=== PATIENT | male | born 1975 | race Caucasian/White ===

== ENCOUNTER 2017-04-12 21:28 | Emergency (ER) | payer SELFPAY ==
[~2017-04-12] VITALS: Ht 180.3 cm; Wt 105.0 kg
[~2017-04-12 21:28] MED LIST: CIPR500T4 PO; CYCL-36 PO; DICL50 PO; METR-1 PO
[2017-04-12 21:37] VITALS: BP 172/91; PULSE 106; RESP 16; TEMP 100.2; O2SAT 99
--- NOTE | 2017-04-12 22:05 | PD ---
Physical Exam Date Seen by Provider: Apr 12, 2017 Time Seen by Provider: 22:02 Data Data Last Documented VS Vital Signs Date Time Temp Pulse Resp B/P Pulse Ox O2 Delivery O2 Flow Rate FiO2 04/12/17 21:37 100.2 106 16 172/91 99 Room Air MDM Supervised Visit with JENNIFER: No Narrative Course 41 YO M with complaint of fever, rash, right foot swelling, headache, nausea x " a couple of days." Also complains of 3 days of diarrhea, resolved on presentation. Patient just returned from 10 days in [place]. No treatment at home. Vitals reviewed. Patient seen in triage, awaiting bed placement. Neha Galeas Apr 12, 2017 22:05
[2017-04-12] MEDS ORDERED: KETOROLAC TROMETHAMINE 30 MG/ML (IVP) VIAL IV PUSH ONE (23:00)
[2017-04-12] MEDS ORDERED: ONDANSETRON HCL 4 MG/2 ML VIAL IV PUSH ONE (23:00)
--- NOTE | 2017-04-12 23:00 | PD ---
HPI Chief Complaint: Fever Time Seen by Provider: 22:54 Travel History International Travel<30 days: Yes Contact w/Intl Traveler<30days: Yes Name of Country Traveled to: [place] Traveled to known affect area: No History of Present Illness HPI 41-year-old male that presents to the ED for evaluation of fever, headache, nausea and vomiting and diarrhea. Patient has a history of recent travel to [place]. Per patient he got sick while he was in [place] and he had a lot of diarrhea as well as abdominal discomfort. Per patient he seemed to go away and then he came back for the past couple days. His been having a headache, fevers chills and sweats as well as nausea vomiting and diarrhea. He also cystitis some anal pain. He also states having swelling to both lower legs which started the past couple of days. Per patient the pain is in the medial aspect. Denies any chest pain or shortness of breath. He states having some cough but no congestion. Headache is mild. He is not taking anything for his fever today. He denies any injuries. He states that he has a family member in [place] who also has the same symptoms and patient and family members are concerned that he might have Zika or Dengue which are, per patient, "rampant" in [place]. Pain per patient is 4/10. No blood. Rash to the abdomen which started today. PFSH Past Medical History Hx Anticoagulant Therapy: No Cardiovascular Problems: Yes (HTN) Chemotherapy: No Cerebrovascular Accident: No Diabetes: No Respiratory: No Social History Alcohol Use: No Tobacco Use: No Substance Use: No Allergies-Medications (Allergen,Severity, Reaction): Coded Allergies: No Known Allergies (Unverified , 04/12/17) Reported Meds & Prescriptions Reported Meds & Active Scripts Active Flagyl (Metronidazole) 500 Mg Tab 500 Mg PO Q6HR 10 Days Cipro (Ciprofloxacin HCl) 500 Mg Tab 500 Mg PO Q12HR 10 Days Flexeril (Cyclobenzaprine HCl) 10 Mg Tab 10 Mg PO TID Voltaren (Diclofenac Sodium) 50 Mg Tabec 50 Mg PO TID Review of Systems Except as stated in HPI: all other systems reviewed are Neg Physical Exam Narrative GENERAL: SKIN: Warm and dry. Patient has an erythematous nonspecific rash to the chest. Non-pruritic or painful. HEAD: Atraumatic. Normocephalic. EYES: Pupils equal and round. No scleral icterus. No injection or drainage. ENT: No nasal bleeding or discharge. Mucous membranes pink and moist. Tongue is midline. No uvula deviation. NECK: Trachea midline. No JVD. CARDIOVASCULAR: Regular rate and rhythm. No murmurs, S3, S4. RESPIRATORY: No accessory muscle use. Clear to auscultation. Breath sounds equal bilaterally. GASTROINTESTINAL: Abdomen soft, non-tender, nondistended. Hepatic and splenic margins not palpable. Rectal exam: The with no nurse present. Patient does have what appears to be a hemorrhoid on the 3:00 area. About 2 cm in diameter. MUSCULOSKELETAL: Extremities without clubbing, cyanosis, or edema. No obvious deformities. Full range of motion of the upper and lower extremities bilaterally. 2+ pulses bilaterally. Patient does have soft tissue swelling noted about the medial malleolus bilaterally with some tenderness to palpation in the area. NEUROLOGICAL: Awake and alert. No obvious cranial nerve deficits. Motor grossly within normal limits. Five out of 5 muscle strength in the arms and legs. Normal speech. PSYCHIATRIC: Appropriate mood and affect; insight and judgment normal. Data Data Last Documented VS Vital Signs Date Time Temp Pulse Resp B/P Pulse Ox O2 Delivery O2 Flow Rate FiO2 04/12/17 21:37 100.2 106 16 172/91 99 Room Air Orders Complete Blood Count With Diff (04/12/17 22:49) Comprehensive Metabolic Panel (04/12/17 22:49) Lipase (04/12/17 22:49) Urinalysis - C+S If Indicated (04/12/17 22:49) Chest, Single Ap (04/12/17 22:49) Iv Access Insert/Monitor (04/12/17 22:49) Ketorolac Inj (Toradol Inj) (04/12/17 23:00) Us Leg Venous Doppler Bilat (04/12/17 ) Ondansetron Inj (Zofran Inj) (04/12/17 23:00) Influenzae A/B Antigen (04/12/17 22:53) MDM Medical Decision Making Medical Screen Exam Complete: Yes Emergency Medical Condition: Yes Medical Record Reviewed: Yes Differential Diagnosis Vital illness versus influenza versus diarrhea versus gastroenteritis versus DVT versus normal exam Narrative Course 41-year-old male that presents to the ED for evaluation of nausea vomiting diarrhea and swelling on the legs. Patient was properly examined and was found to have signs and symptoms consistent what appears to be likely viral illness. Unclear etiology at this time. Case was discussed in my attending Dr. Ghosh who will disposition and treatment the patient accordingly. Onel Bush Apr 12, 2017 23:00
--- NOTE | 2017-04-12 23:08 | PD ---
Data Data Last Documented VS Vital Signs Date Time Temp Pulse Resp B/P Pulse Ox O2 Delivery O2 Flow Rate FiO2 04/13/17 01:32 98.7 04/13/17 01:27 18 18 100 Room Air 04/13/17 01:27 123/63 Orders Complete Blood Count With Diff (04/12/17 22:49) Comprehensive Metabolic Panel (04/12/17 22:49) Lipase (04/12/17 22:49) Urinalysis - C+S If Indicated (04/12/17 22:49) Chest, Single Ap (04/12/17 22:49) Iv Access Insert/Monitor (04/12/17 22:49) Ketorolac Inj (Toradol Inj) (04/12/17 23:00) Us Leg Venous Doppler Bilat (04/12/17 ) Ondansetron Inj (Zofran Inj) (04/12/17 23:00) Influenzae A/B Antigen (04/12/17 22:53) Sodium Chlor 0.9% 1000 Ml Inj (Ns 1000 M (04/13/17 00:30) Labs Laboratory Tests Test 04/12/17 04/12/17 23:00 23:56 White Blood Count 4.8 TH/MM3 Red Blood Count 5.38 MIL/MM3 Hemoglobin 14.3 GM/DL Hematocrit 43.8 % Mean Corpuscular Volume 81.5 FL Mean Corpuscular Hemoglobin 26.7 PG Mean Corpuscular Hemoglobin 32.7 % Concent Red Cell Distribution Width 14.6 % Platelet Count 267 TH/MM3 Mean Platelet Volume 7.7 FL Neutrophils (%) (Auto) 60.3 % Lymphocytes (%) (Auto) 29.7 % Monocytes (%) (Auto) 8.2 % Eosinophils (%) (Auto) 1.2 % Basophils (%) (Auto) 0.6 % Neutrophils # (Auto) 2.9 TH/MM3 Lymphocytes # (Auto) 1.4 TH/MM3 Monocytes # (Auto) 0.4 TH/MM3 Eosinophils # (Auto) 0.1 TH/MM3 Basophils # (Auto) 0.0 TH/MM3 CBC Comment DIFF FINAL Differential Comment Sodium Level 137 MEQ/L Potassium Level 3.9 MEQ/L Chloride Level 101 MEQ/L Carbon Dioxide Level 28.8 MEQ/L Anion Gap 7 MEQ/L Blood Urea Nitrogen 13 MG/DL Creatinine 1.71 MG/DL Estimat Glomerular Filtration 45 ML/MIN Rate Random Glucose 108 MG/DL Calcium Level 8.3 MG/DL Total Bilirubin 0.3 MG/DL Aspartate Amino Transf 69 U/L (AST/SGOT) Alanine Aminotransferase 127 U/L (ALT/SGPT) Alkaline Phosphatase 55 U/L Total Protein 7.6 GM/DL Albumin 3.6 GM/DL Lipase 376 U/L Urine Color YELLOW Urine Turbidity CLEAR Urine pH 6.5 Urine Specific Hartman 1.018 Urine Protein TRACE mg/dL Urine Glucose (UA) NEG mg/dL Urine Ketones NEG mg/dL Urine Occult Blood NEG Urine Nitrite NEG Urine Bilirubin NEG Urine Urobilinogen LESS THAN 2.0 MG/DL Urine Leukocyte Esterase NEG Urine RBC 1 /hpf Urine WBC 1 /hpf Urine Squamous Epithelial <1 /hpf Cells Microscopic Urinalysis Comment CULT NOT INDICATED MDM Supervised Visit with JENNIFER: Yes Narrative Course Patient care assumed from Onel Bush PA-C at 2300. This is a 41-year-old healthy male presents emergency department for evaluation of fever and pain rash. Patient states she's had a rash all over. Of examine the rash and appears to be just some mild redness. Rapid flu negative his labs are reassuring as far as as well as management count platelet count. The patient and concerned about getting a fever impossible Z cannula exposure. I do not see any hemorrhagic symptoms. Patient does have minimal elevation of his creatinine but his last was 1.4. I suspect an element of chronic kidney disease. His ALT and AST ratio suggests hepatocellular disease such as hepatitis. This was all discussed with the patient was feeling better after Tylenol and fluids. I think that at this point he can go home. His primary care physician or the health department. Discussed return to ED criteria including hemorrhagic rashes or petechiae. He is stable for discharge. Diagnosis Primary Impression: Fever Additional Impression: Dehydration Disposition: 01 DISCHARGE HOME Condition: Stable Emery Ghosh MD Apr 12, 2017 23:08
--- NOTE | 2017-04-12 23:12 | RADRPT ---
EXAM DATE/TIME: 04/12/2017 22:44 [facility] COMPARISON: CHEST SINGLE AP, May 05, 2016, 15:42. INDICATIONS : Fever and shortness of breath. MEDICAL HISTORY : None. SURGICAL HISTORY : None. ENCOUNTER: Initial ACUITY: 1 week PAIN SCORE: 0/10 LOCATION: chest FINDINGS: A single view of the chest demonstrates the lungs to be symmetrically aerated without evidence of mas s, infiltrate or effusion. The cardiomediastinal contours are unremarkable. Osseous structures are intact. CONCLUSION: No acute disease. Hubert Pascal MD on April 12, 2017 at 23:10 Board Certified Radiologist. This report was verified electronically.
[2017-04-12 23:24] LABS: AUTOMATED NEUTROPHIL # 2.9 TH/MM3 (1.8-7.7); BASOPHIL % 0.6 % (0.0-2.0); EOSINOPHIL # 0.1 TH/MM3 (0-0.4); EOSINOPHIL % 1.2 % (0.0-4.0); HEMATOCRIT 43.8 % (39.0-51.0); HEMO FLAGS DIFF FINAL; LYMPH % 29.7 % (9.0-44.0); LYMPHOCYTE # 1.4 TH/MM3 (1.0-4.8); MEAN CELL VOLUME 81.5 FL (80.0-100.0); MEAN CORPUSCULAR HEMOGLOBIN 26.7 PG (27.0-34.0); MEAN CORPUSCULAR HGB CONC 32.7 % (32.0-36.0); MONO % 8.2 % (0.0-8.0); NEUT % 60.3 % (16.0-70.0); PLATELET COUNT 267 TH/MM3 (150-450); RED BLOOD COUNT 5.38 MIL/MM3 (4.50-5.90); RED CELL DISTRIBUTION WIDTH 14.6 % (11.6-17.2); WHITE BLOOD COUNT 4.8 TH/MM3 (4.0-11.0)
[2017-04-12 23:42] LABS: ALT (GPT) 127 U/L (12-78)
[2017-04-12 23:45] LABS: ALKALINE PHOSPHATASE 55 U/L (45-117); ANION GAP 7 MEQ/L (5-15); AST (GOT) 69 U/L (15-37); BICARBONATE 28.8 MEQ/L (21.0-32.0); BLOOD UREA NITROGEN 13 MG/DL (7-18); CHLORIDE 101 MEQ/L (98-107); GLOMERULAR FILTRATION RATE 45 ML/MIN (>89); SODIUM (NA) 137 MEQ/L (136-145); TOTAL BILIRUBIN ADULT 0.3 MG/DL (0.2-1.0)
[2017-04-12 23:46] LABS: POTASSIUM 3.9 MEQ/L (3.5-5.1)
--- NOTE | 2017-04-13 00:08 | RADRPT ---
EXAM DATE/TIME: 04/12/2017 23:03 [facility] COMPARISON: No previous studies available for comparison. INDICATIONS : Bilateral leg swelling. MEDICAL HISTORY : Hypertension. SURGICAL HISTORY : None. ENCOUNTER: Initial ACUITY: 1 day PAIN SCORE: 2/10 LOCATION: Bilateral legs. TECHNIQUE: Venous ultrasound of the left and right leg was performed from the inguinal ligament to the proximal calf. Real-time, color Doppler and spectral tracing, compression and augmentation techniques were us ed. FINDINGS: RIGHT LEG: There is normal compressibility of the deep venous system from the inguinal region to the proximal ca lf. No echogenic clot is seen in the lumen of the common femoral, femoral, popliteal, and posterior tibial veins. There is a normal response of the venous system to proximal and distal augmentation an d respiration. LEFT LEG: There is normal compressibility of the deep venous system from the inguinal region to the proximal ca lf. No echogenic clot is seen in the lumen of the common femoral, femoral, popliteal, and posterior tibial veins. There is a normal response of the venous system to proximal and distal augmentation an d respiration. CONCLUSION: 1. No DVT in either lower extremity. 2. Enlarged lymph nodes largest in the right groin measures 3.2 cm and the left groin measures 3.3 cm . Hubert Pascal MD on April 13, 2017 at 0:06 Board Certified Radiologist. This report was verified electronically.
[2017-04-13 00:20] LABS: BLOOD, URINE NEG (NEG); GLUCOSE,URINE NEG (NEG); KETONE, URINE NEG (NEG); NITRITE,URINE NEG (NEG); PH, URINE 6.5 (5.0-8.5); SQUAMOUS EPITHELIAL CELL URINE <1 /hpf (0-5); URINE COLOR YELLOW (YELLW/STRAW)
[2017-04-13] MEDS ORDERED: SODIUM CHLOR 0.9% 1000 ML INJ 1,000 ML IV ONE (00:30)
[2017-04-13 00:32] LABS: COMMENT (UR) CULT NOT INDICATED; CULTURE IF INDICATED CULT NOT INDICATED
[2017-04-13 01:27] VITALS: BP 123/63; PULSE 91; RESP 18; O2SAT 100
[2017-04-13 01:32] VITALS: TEMP 98.7
== END 2017-04-13 02:17 | disposition home or self-care (01) ==
LOC: NEPE 21:28
DX: R50.9 Fever, unspecified (principal); E86.0 Dehydration; R21 Rash and other nonspecific skin eruption; R11.2 Nausea with vomiting, unspecified; R19.7 Diarrhea, unspecified; M79.89 Other specified soft tissue disorders; R51 Headache; I10 Essential (primary) hypertension; Z79.899 Other long term (current) drug therapy
CPT/HCPCS: 71010; 80053; 81001; 83690; 85025; 87804; 93970; 96374; 96375; 99285; J1885; J2405; J7030

== ENCOUNTER 2017-11-01 01:04 | Emergency (ER) | payer SELFPAY ==
[~2017-11-01] VITALS: Ht 170.2 cm; Wt 113.5 kg
[2017-11-01 01:18] VITALS: BP 137/70; PULSE 85; RESP 18; TEMP 98.4; O2SAT 97
[2017-11-01] MEDS ORDERED: ACETAMINOPHEN/HYDROcodone 325 MG/5 MG TAB PO ONE (01:45)
[2017-11-01] MEDS ORDERED: INDOMETHACIN 50 MG CAP PO ONE (01:45)
[2017-11-01] MEDS ORDERED: INDO75CA3 PO (01:50)
[2017-11-01] MEDS ORDERED: PRED-503 PO (01:50)
[2017-11-01] MEDS ORDERED: NORC5TAB PO (01:50)
--- NOTE | 2017-11-01 01:55 | PD ---
HPI Chief Complaint: Injury Time Seen by Provider: 01:38 Travel History International Travel<30 days: No Contact w/Intl Traveler<30days: No Traveled to known affect area: No History of Present Illness HPI 42-year-old male presents emergency department with complaints of right ankle pain for the past several days. Patient states that he has had pain in his right ankle in the past similar nature was diagnosed with gout. Patient states that he is unsure whether this is recurrent gout or possibly a sprain although he does not recall injuring it. He states the pain is worse with movement or any type of pressure. He is unable to bear weight. Denies any numbness or tingling. PFSH Past Medical History Narrative Medical Hypertension, gout Hx Anticoagulant Therapy: No Cardiovascular Problems: Yes (HTN) Chemotherapy: No Cerebrovascular Accident: No Diabetes: No Diminished Hearing: No Hypertension: Yes Respiratory: No Tetanus Vaccination: Unknown Influenza Vaccination: No Past Surgical History Surgical History: No Previous Surgery Social History Alcohol Use: No Tobacco Use: No Substance Use: No Allergies-Medications (Allergen,Severity, Reaction): Coded Allergies: No Known Allergies (Unverified Adverse Reaction, Unknown, 11/01/17) Reported Meds & Prescriptions Reported Meds & Active Scripts Active Deltasone (Prednisone) 20 Mg Tab 20 Mg PO TID 5 Days Balko (Hydrocodone-Acetaminophen) 5 Mg-325 Mg Tab 1 Tab PO Q6H PRN 3 Days Indomethacin ER (Indomethacin) 75 Mg Caper 75 Mg PO BID 10 Days Take with food, milk, or antacids to decrease stomach adverse effects. Flagyl (Metronidazole) 500 Mg Tab 500 Mg PO Q6HR 10 Days Cipro (Ciprofloxacin HCl) 500 Mg Tab 500 Mg PO Q12HR 10 Days Flexeril (Cyclobenzaprine HCl) 10 Mg Tab 10 Mg PO TID Voltaren (Diclofenac Sodium) 50 Mg Tabec 50 Mg PO TID Review of Systems Except as stated in HPI: all other systems reviewed are Neg Musculoskeletal: Positive: Arthralgias, Limited ROM, Edema, Pain, No: Weakness Skin: No Rash, No Itching Physical Exam Narrative GENERAL: This is a well-nourished, well-developed patient, in no apparent distress. SKIN: No rashes, ecchymoses or lesions. Warm and dry. HEAD: Atraumatic. Normocephalic. EYES: PERRL, EOMI, no discharge or injection. No scleral icterus. EARS: Clear NOSE: Nasal turbinates appear normal. THROAT: Mucosa pink and moist. Airway patent. NECK: Trachea midline. supple, moves head freely. LUNGS: Clear to auscultation. CV: Regular in rhythm. ABDOMEN: Soft nontender. EXT: No clubbing cyanosis. Examination of the right lower extremity reveals pain and swelling to the right ankle. No pain over the medial lateral malleolus. No pain in the distal forefoot, toes. Patient has no pain in the knee or hip. Skin is intact. Data Data Last Documented VS Vital Signs Date Time Temp Pulse Resp B/P (MAP) Pulse Ox O2 Delivery O2 Flow Rate FiO2 11/01/17 01:18 98.4 85 18 137/70 (92) 97 Orders Orders Splint Or Brace Apply/Monitor (11/01/17 01:42) Crutches (11/01/17 01:42) Acetamin-Hydrocod 325-5 Mg (Balko 5-325 (11/01/17 01:45) Prednisone (Deltasone) (11/01/17 09:00) Indomethacin (Indocin) (11/01/17 01:45) Ed Discharge Order (11/01/17 01:42) MDM Medical Decision Making Medical Screen Exam Complete: Yes Emergency Medical Condition: Yes Medical Record Reviewed: Yes Differential Diagnosis Differential diagnosis: Sprain, strain, gout Narrative Course Patient was given Balko 5 mg, prednisone 40 mg, and 50 mg of indomethacin p.o. This is gout right ankle Diagnosis Primary Impression: Gout of right ankle Qualified Codes: M10.9 - Gout, unspecified Patient Instructions: General Instructions Additional Instructions: Rest. Elevation. Medications as directed. Dean wrap and crutches. Avoid any red meats, cheeses, and/or alcohol. Follow-up with a primary care doctor in 1 week. Med/Other Pt SpecificInfo: Prescription(s) given Scripts Prednisone (Deltasone) 20 Mg Tab 20 MG PO TID for 5 Days, TAB 0 Refills Prov: Shaggy Eisenberg MD 11/01/17 Hydrocodone-Acetaminophen (Balko) 5 Mg-325 Mg Tab 1 TAB PO Q6H Y for PAIN for 3 Days, #12 TAB 0 Refills Prov: Shaggy Eisenberg MD 11/01/17 Indomethacin ER (Indomethacin ER) 75 Mg Caper 75 MG PO BID for 10 Days, #20 CAP 0 Refills Take with food, milk, or antacids to decrease stomach adverse effects. Prov: Shaggy Eisenberg MD 11/01/17 Disposition: 01 DISCHARGE HOME Condition: Stable Victor M Smith Nov 01, 2017 01:55
[2017-11-01] MEDS ORDERED: predniSONE 20 MG TAB PO ONE (02:00)
[2017-11-01] MEDS ORDERED: predniSONE 20 MG TAB PO SCH (09:00)
== END 2017-11-01 02:21 | disposition home or self-care (01) ==
LOC: NEPD 01:04
DX: M10.9 Gout, unspecified (principal); I10 Essential (primary) hypertension
CPT/HCPCS: 99283; E0113; J7512

== ENCOUNTER 2017-12-16 18:11 | Emergency (ER) | payer SELFPAY ==
[~2017-12-16 18:11] MED LIST changes: +INDO75CA3 PO; +NORC5TAB PO; +PRED-503 PO
[2017-12-16 18:30] VITALS: BP 137/92; PULSE 100; RESP 18; TEMP 98.4; O2SAT 97
--- NOTE | 2017-12-16 19:02 | RADRPT ---
EXAM DATE/TIME: 12/16/2017 18:42 [facility] COMPARISON: No previous studies available for comparison. INDICATIONS : Left sided chest pain and cough for one week. MEDICAL HISTORY : Hypertension. SURGICAL HISTORY : None. ENCOUNTER: Initial ACUITY: 1 week PAIN SCORE: 10/10 LOCATION: Left chest FINDINGS: PA and lateral views of the chest demonstrate the lungs to be symmetrically aerated without evidence of mass, infiltrate or effusion. The cardiomediastinal contours are unremarkable. Osseous structure s are intact. CONCLUSION: No acute disease. Braden Hartman MD on December 16, 2017 at 18:59 Board Certified Radiologist. This report was verified electronically.
[2017-12-16] MEDS ORDERED: SODIUM CHLOR 0.9% 1000 ML INJ 1,000 ML IV SCH (20:01)
--- NOTE | 2017-12-16 20:06 | PD ---
HPI Chief Complaint: Musculoskeletal Complaint Time Seen by Provider: 19:58 Travel History International Travel<30 days: No Contact w/Intl Traveler<30days: No Traveled to known affect area: No History of Present Illness HPI 42-year-old male presents emergency department 4 day history of left- sided lower rib/flank pain. Patient has history of horseshoe kidney and kidney stones in the past. Patient denies fever, chills, but has had nausea. He denies dysuria or hematuria, and no change in his bowels. Pain is currently 8 out of 10. He states is worse with deep breath or cough. No vomiting. He has no known drug allergies. PFSH Past Medical History Hx Anticoagulant Therapy: No Cardiovascular Problems: Yes (HTN) Chemotherapy: No Cerebrovascular Accident: No Diabetes: No Diminished Hearing: No Hypertension: Yes Respiratory: No Social History Alcohol Use: No Tobacco Use: No Substance Use: No Allergies-Medications (Allergen,Severity, Reaction): Coded Allergies: No Known Allergies (Unverified Allergy, Unknown, 11/01/17) Reported Meds & Prescriptions Reported Meds & Active Scripts Active Deltasone (Prednisone) 20 Mg Tab 20 Mg PO TID 5 Days Clemons (Hydrocodone-Acetaminophen) 5 Mg-325 Mg Tab 1 Tab PO Q6H PRN 3 Days Indomethacin ER (Indomethacin) 75 Mg Caper 75 Mg PO BID 10 Days Take with food, milk, or antacids to decrease stomach adverse effects. Flagyl (Metronidazole) 500 Mg Tab 500 Mg PO Q6HR 10 Days Cipro (Ciprofloxacin HCl) 500 Mg Tab 500 Mg PO Q12HR 10 Days Flexeril (Cyclobenzaprine HCl) 10 Mg Tab 10 Mg PO TID Voltaren (Diclofenac Sodium) 50 Mg Tabec 50 Mg PO TID Review of Systems Except as stated in HPI: all other systems reviewed are Neg General / Constitutional: No: Fever Eyes: No: Visual changes HENT: No: Headaches Cardiovascular: No: Chest Pain or Discomfort Respiratory: No: Shortness of Breath Gastrointestinal: No: Abdominal Pain Genitourinary: Positive: Flank Pain, No: Urgency, Frequency, Dysuria Musculoskeletal: No: Pain Skin: No Rash Neurologic: No: Weakness Psychiatric: No: Depression Endocrine: No: Polydipsia Hematologic/Lymphatic: No: Easy Bruising Physical Exam Narrative GENERAL: Patient appears in moderate distress. SKIN: Warm and dry. Normal color. Normal turgor. No rash. HEAD: Atraumatic. Normocephalic. EYES: Pupils equal and round. No scleral icterus. No injection or drainage. ENT: No nasal bleeding or discharge. Mucous membranes pink and moist. Pharynx is clear. Airways patent NECK: Trachea midline. Supple nontender CARDIOVASCULAR: Regular rate and rhythm. RESPIRATORY: No accessory muscle use. Clear to auscultation. Breath sounds equal bilaterally. GASTROINTESTINAL: Abdomen soft, moderate left upper quadrant tenderness, nondistended. No point tenderness or rebound hepatic and splenic margins not palpable. Positive CVA tenderness on the left. MUSCULOSKELETAL: Extremities without clubbing, cyanosis, or edema. No obvious deformities. NEUROLOGICAL: Awake and alert. No obvious cranial nerve deficits. Motor grossly within normal limits. Five out of 5 muscle strength in the arms and legs. Normal speech. PSYCHIATRIC: Appropriate mood and affect; insight and judgment normal. Data Data Last Documented VS Vital Signs Date Time Temp Pulse Resp B/P (MAP) Pulse Ox O2 Delivery O2 Flow Rate FiO2 12/16/17 18:30 98.4 100 18 137/92 (107) 97 Orders Orders Chest, Pa & Lat (12/16/17 ) Complete Blood Count With Diff (12/16/17 20:01) Comprehensive Metabolic Panel (12/16/17 20:01) Urinalysis - C+S If Indicated (12/16/17 20:01) Ct Abd/Pel W/O Iv Contrast (12/16/17 20:01) Iv Access Insert/Monitor (12/16/17 20:01) Ecg Monitoring (12/16/17 20:01) Oximetry (12/16/17 20:01) Morphine Inj (Morphine Inj) (12/16/17 20:15) Sodium Chlor 0.9% 1000 Ml Inj (Ns 1000 M (12/16/17 20:01) Sodium Chloride 0.9% Flush (Ns Flush) (12/16/17 20:15) Ketorolac Inj (Toradol Inj) (12/16/17 20:15) MDM Medical Decision Making Medical Screen Exam Complete: Yes Emergency Medical Condition: Yes Differential Diagnosis Left flank pain. Chest wall pain. Pneumonia. Kidney stone. Pyelonephritis Narrative Course Patient is medically stable time exam. Chest x-ray ordered in triage is negative for acute process. CT the abdomen and pelvis without contrast is ordered to rule out kidney stone and pyelonephritis. IV access is ordered with 2 mg morphine IV, 30 mg Toradol IV, 1000 mL of normal saline bolus ordered. Labs ordered including CBC, CMP, and urinalysis. [address] and labs are pending CARE the patient will be turned over to Alexa Curtis nurse practitioner for final disposition. Patient Instructions: General Instructions Condition: Stable Ean Vila Dec 16, 2017 20:06
[2017-12-16] MEDS ORDERED: KETOROLAC TROMETHAMINE 30 MG/ML (IVP) VIAL IVP ONE (20:15)
[2017-12-16] MEDS ORDERED: MORPHINE SULFATE 4 MG/ML INJ IV PUSH ONE (20:15)
[2017-12-16] MEDS ORDERED: SODIUM CHLORIDE 0.9% FLUSH 10 ML FLUSH IV FLUSH PRN (20:15)
[2017-12-16 21:02] LABS: BILIRUBIN, URINE NEG (NEG); BLOOD, URINE NEG (NEG); GLUCOSE,URINE NEG (NEG); KETONE, URINE NEG (NEG); MUCUS URINE FEW /lpf (OCC); NITRITE,URINE NEG (NEG); SQUAMOUS EPITHELIAL CELL URINE <1 /hpf (0-5); URINE COLOR YELLOW (YELLW/STRAW); URINE LEUKOCYTE ESTERASE NEG (NEG)
--- NOTE | 2017-12-16 21:15 | RADRPT ---
EXAM DATE/TIME: 12/16/2017 20:35 [facility] COMPARISON: CT ABDOMEN & PELVIS W CONTRAST, May 05, 2016, 16:31. INDICATIONS : Worsening left lower abdomen pain today. ORAL CONTRAST: No oral contrast ingested. RADIATION DOSE: 29.89 CTDIvol (mGy) ; Patient body habitus MEDICAL HISTORY : Renal calculi. Hypertension. SURGICAL HISTORY : Appendectomy. ENCOUNTER: Initial ACUITY: 1 day PAIN SCALE: 8/10 LOCATION: Left lower quadrant TECHNIQUE: Volumetric scanning of the abdomen and pelvis was performed. Using automated exposure control and ad justment of the mA and/or kV according to patient size, radiation dose was kept as low as reasonably achievable to obtain optimal diagnostic quality images. DICOM format image data is available electro nically for review and comparison. FINDINGS: LOWER LUNGS: The visualized lower lungs are clear. LIVER: There is diffuse decreased attenuation to the liver. No focal hepatic lesions are seen. SPLEEN: Normal size without lesion. PANCREAS: Within normal limits. KIDNEYS: There is a horseshoe kidney seen in the lower abdomen. There are small nonobstructing renal stones bi laterally measuring up to 3 mm. No hydronephrosis is seen. The ureters are normal. ADRENAL GLANDS: Within normal limits. VASCULAR: There is no aortic aneurysm. BOWEL/MESENTERY: The stomach, small bowel, and colon demonstrate no acute abnormality. There is no free intraperitone al air or fluid. ABDOMINAL WALL: Within normal limits. RETROPERITONEUM: There is no lymphadenopathy. BLADDER: No wall thickening or mass. REPRODUCTIVE: Within normal limits. INGUINAL: There is no lymphadenopathy or hernia. MUSCULOSKELETAL: Within normal limits for patient age. CONCLUSION: 1. Horseshoe kidney in the lower abdomen with small nonobstructing renal stones. 2. Hepatic steatosis. Braden Hartman MD on December 16, 2017 at 21:09 Board Certified Radiologist. This report was verified electronically.
[2017-12-16 21:26] VITALS: RESP 20; O2SAT 98
[2017-12-16 21:59] LABS: ALT (GPT) 40 U/L (12-78)
[2017-12-16 22:00] LABS: ALKALINE PHOSPHATASE 54 U/L (45-117); TOTAL BILIRUBIN ADULT 0.4 MG/DL (0.2-1.0); TOTAL PROTEIN 7.8 GM/DL (6.4-8.2)
[2017-12-16 22:01] LABS: AUTOMATED NEUTROPHIL # 5.5 TH/MM3 (1.8-7.7); BASOPHIL % 0.5 % (0.0-2.0); EOSINOPHIL # 0.1 TH/MM3 (0-0.4); EOSINOPHIL % 0.9 % (0.0-4.0); HEMATOCRIT 46.7 % (39.0-51.0); HEMOGLOBIN 15.6 GM/DL (13.0-17.0); LYMPH % 35.5 % (9.0-44.0); LYMPHOCYTE # 3.4 TH/MM3 (1.0-4.8); MEAN CELL VOLUME 81.2 FL (80.0-100.0); MEAN CORPUSCULAR HEMOGLOBIN 27.1 PG (27.0-34.0); MEAN CORPUSCULAR HGB CONC 33.4 % (32.0-36.0); MEAN PLATELET VOLUME 8.5 FL (7.0-11.0); MONO % 5.6 % (0.0-8.0); MONOCYTE # 0.5 TH/MM3 (0-0.9); NEUT % 57.5 % (16.0-70.0); PLATELET COUNT 252 TH/MM3 (150-450); RED BLOOD COUNT 5.76 MIL/MM3 (4.50-5.90); RED CELL DISTRIBUTION WIDTH 14.7 % (11.6-17.2); WHITE BLOOD COUNT 9.6 TH/MM3 (4.0-11.0)
[2017-12-16 22:03] LABS: ALBUMIN 3.8 GM/DL (3.4-5.0); AST (GOT) 25 U/L (15-37); BICARBONATE 24.7 MEQ/L (21.0-32.0); BLOOD UREA NITROGEN 18 MG/DL (7-18); CALCIUM 8.9 MG/DL (8.5-10.1); CHLORIDE 107 MEQ/L (98-107); CREATININE 1.28 MG/DL (0.60-1.30); GLOMERULAR FILTRATION RATE 62 ML/MIN (>89); GLUCOSE,RANDOM 68 MG/DL (74-106); SODIUM (NA) 139 MEQ/L (136-145)
--- NOTE | 2017-12-16 22:20 | PD ---
Data Data Last Documented VS Vital Signs Date Time Temp Pulse Resp B/P (MAP) Pulse Ox O2 Delivery O2 Flow Rate FiO2 12/16/17 21:26 20 98 Room Air 12/16/17 18:30 98.4 100 137/92 (107) Orders Orders Chest, Pa & Lat (12/16/17 ) Complete Blood Count With Diff (12/16/17 20:01) Comprehensive Metabolic Panel (12/16/17 20:01) Urinalysis - C+S If Indicated (12/16/17 20:01) Ct Abd/Pel W/O Iv Contrast (12/16/17 20:01) Iv Access Insert/Monitor (12/16/17 20:01) Ecg Monitoring (12/16/17 20:01) Oximetry (12/16/17 20:01) Morphine Inj (Morphine Inj) (12/16/17 20:15) Sodium Chlor 0.9% 1000 Ml Inj (Ns 1000 M (12/16/17 20:01) Sodium Chloride 0.9% Flush (Ns Flush) (12/16/17 20:15) Ketorolac Inj (Toradol Inj) (12/16/17 20:15) Electrocardiogram (12/16/17 ) Labs Laboratory Tests Test 12/16/17 20:30 White Blood Count 9.6 TH/MM3 Red Blood Count 5.76 MIL/MM3 Hemoglobin 15.6 GM/DL Hematocrit 46.7 % Mean Corpuscular Volume 81.2 FL Mean Corpuscular Hemoglobin 27.1 PG Mean Corpuscular Hemoglobin Concent 33.4 % Red Cell Distribution Width 14.7 % Platelet Count 252 TH/MM3 Mean Platelet Volume 8.5 FL Neutrophils (%) (Auto) 57.5 % Lymphocytes (%) (Auto) 35.5 % Monocytes (%) (Auto) 5.6 % Eosinophils (%) (Auto) 0.9 % Basophils (%) (Auto) 0.5 % Neutrophils # (Auto) 5.5 TH/MM3 Lymphocytes # (Auto) 3.4 TH/MM3 Monocytes # (Auto) 0.5 TH/MM3 Eosinophils # (Auto) 0.1 TH/MM3 Basophils # (Auto) 0.0 TH/MM3 CBC Comment DIFF FINAL Differential Comment Urine Color YELLOW Urine Turbidity CLEAR Urine pH 7.0 Urine Specific [place] 1.018 Urine Protein 30 mg/dL Urine Glucose (UA) NEG mg/dL Urine Ketones NEG mg/dL Urine Occult Blood NEG Urine Nitrite NEG Urine Bilirubin NEG Urine Urobilinogen LESS THAN 2.0 MG/DL Urine Leukocyte Esterase NEG Urine WBC 1 /hpf Urine Squamous Epithelial Cells <1 /hpf Urine Mucus FEW /lpf Microscopic Urinalysis Comment CULT NOT INDICATED Blood Urea Nitrogen 18 MG/DL Creatinine 1.28 MG/DL Random Glucose 68 MG/DL Total Protein 7.8 GM/DL Albumin 3.8 GM/DL Calcium Level 8.9 MG/DL Alkaline Phosphatase 54 U/L Aspartate Amino Transf (AST/SGOT) 25 U/L Alanine Aminotransferase (ALT/SGPT) 40 U/L Total Bilirubin 0.4 MG/DL Sodium Level 139 MEQ/L Potassium Level 3.9 MEQ/L Chloride Level 107 MEQ/L Carbon Dioxide Level 24.7 MEQ/L Anion Gap 7 MEQ/L Estimat Glomerular Filtration Rate 62 ML/MIN MDM Supervised Visit with JENNIFER: Yes Narrative Course I, Dr. Thrasher, have reviewed the advance practice practitioner's documentation and am in agreement, met with the patient face to face, made the diagnosis, and the medical decision making was done by me. See his note for further details. Briefly this is a 42-year-old male who presents for evaluation of 1 week of left flank and left lower rib pain. Patient has history of horseshoe kidney and believes he may have a kidney stone. Pain is moderate to severe, described as sharp/cramping, worse with movements and palpation. No dyspnea. No chest pain. No known history of cardiac disease. No hematuria or dysuria. No fevers or chills. He works in construction. On clinical exam the patient has significant left flank and left lateral rib tenderness without step-offs. Chest wall is without crepitus, without step-off, without paradoxical chest wall movements. There are no rashes. No CVA tenderness. No midline vertebral step-off or tenderness. Vital signs show heart rate 87, blood pressure 137/92, pulse ox 98% on room air , oral temperature 98.4F. CBC is unremarkable. CMP is remarkable for creatinine 1.28, GFR 62, otherwise unremarkable. UA shows 30 protein, few mucus, not suggestive of UTI, no hematuria. EKG: Sinus, rate 77, normal axis, normal intervals, no acute ischemic abnormality. CT abdomen pelvis: CONCLUSION: 1. Horseshoe kidney in the lower abdomen with small nonobstructing renal stones. 2. Hepatic steatosis. Chest x-ray: No acute disease. The patient was made aware of all findings. His pain is improved with morphine and Toradol. His pain seems very musculoskeletal in nature. There are no rashes on exam. No CVA tenderness on exam. He does work in construction and likely strained a muscle in his left flank/lower back. I do not believe his symptoms or cardiopulmonary in nature. His pain is very reproducible on exam. He is stable for discharge home and will be discharged home with a prescription for naproxen and Flexeril. He was advised to follow-up with a primary care physician this week. He was advised also not to drive or operate heavy machinery or drink alcohol while taking Flexeril. He was informed on when to return to the emergency department. He verbalizes understanding and agreement with plan. Diagnosis Primary Impression: Left flank pain Referrals: [facility] 3 days Primary Care Physician 3 days Patient Instructions: General Instructions Additional Instruction: Follow-up with a primary care physician this week. Return to the emergency department for worsening symptoms or any other concerns. Scripts Cyclobenzaprine (Flexeril) 10 Mg Tab 10 MG PO TID for Muscle Spasm, #15 TAB 0 Refills Prov: Justino Thrasher MD 12/16/17 Naproxen (Naprosyn) 500 Mg Tab 500 MG PO BID for 10 Days, #20 TAB 0 Refills Prov: Justino Thrasher MD 12/16/17 Disposition: 01 DISCHARGE HOME Condition: Stable Justino Thrasher MD Dec 16, 2017 22:20
[2017-12-16] MEDS ORDERED: CYCL10TA PO (22:24)
[2017-12-16] MEDS ORDERED: NAPR500 PO (22:24)
--- NOTE | 2017-12-17 15:30 | EKG ---
Date Performed: 12/16/2017 Time Performed: 22:21:12 PTAGE: 42 years EKG: Sinus rhythm WITH SINUS ARRHYTHMIA NORMAL ECG Since the PREVIOUS TRACING , no significant change noted PREVIOUS TRACIN 1515 DOCTOR: Stephen Godoy Interpretating Date/Time 12/17/2017 15:22:24
== END 2017-12-16 22:57 | disposition home or self-care (01) ==
LOC: NEPD 18:11
DX: R10.9 Unspecified abdominal pain (principal); K76.0 Fatty (change of) liver, not elsewhere classified; Q63.1 Lobulated, fused and horseshoe kidney; R11.0 Nausea; I10 Essential (primary) hypertension; Z87.442 Personal history of urinary calculi
CPT/HCPCS: 71046; 74176; 80053; 81001; 85025; 93005; 96361; 96374; 96375; 99285; J1885; J2270; J7030

== ENCOUNTER 2018-02-14 09:43 | Emergency (ER) | payer SELFPAY ==
[~2018-02-14] VITALS: Ht 170.2 cm; Wt 113.5 kg
[~2018-02-14 09:43] MED LIST changes: +CYCL10TA PO; +NAPR500 PO
[2018-02-14 09:46] VITALS: BP 149/89; PULSE 96; RESP 18; TEMP 98; O2SAT 97
--- NOTE | 2018-02-14 10:10 | PD ---
HPI Chief Complaint: Injury Time Seen by Provider: 09:49 Travel History International Travel<30 days: No Contact w/Intl Traveler<30days: No Traveled to known affect area: No History of Present Illness HPI Patient is a 42-year-old male presenting to the emergency department for evaluation of left hip pain after sustaining a mechanical fall 6 days ago. Patient states he fell backwards in a parking lot onto his buttocks. There was no head injury or loss of consciousness. Patient has no other physical complaints at this time. Patient reports 9 out of 10 pain, pain is constant, throbbing and radiating. Patient denies any bladder bowel incontinence, no saddle paresthesia, no weakness. Patient states he has been taking tramadol and naproxen which he had left over from a previous injury with no improvement of his symptoms. 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 Today he states the pain is worse. There was no other injury after the initial injury. PFSH Past Medical History Hx Anticoagulant Therapy: No Chemotherapy: No Cerebrovascular Accident: No Diabetes: No Diminished Hearing: No Hypertension: Yes Social History Alcohol Use: No Tobacco Use: No Substance Use: No Allergies-Medications (Allergen,Severity, Reaction): Coded Allergies: No Known Allergies (Unverified Allergy, Unknown, 11/01/17) Reported Meds & Prescriptions Reported Meds & Active Scripts Active Flexeril (Cyclobenzaprine HCl) 10 Mg Tab 10 Mg PO TID Naprosyn (Naproxen) 500 Mg Tab 500 Mg PO BID 10 Days Deltasone (Prednisone) 20 Mg Tab 20 Mg PO TID 5 Days [place] (Hydrocodone-Acetaminophen) 5 Mg-325 Mg Tab 1 Tab PO Q6H PRN 3 Days Indomethacin ER (Indomethacin) 75 Mg Ca[place] 75 Mg PO BID 10 Days Take with food, milk, or antacids to decrease stomach adverse effects. Review of Systems Except as stated in HPI: all other systems reviewed are Neg Musculoskeletal: Positive: Myalgias, Arthralgias, Pain Physical Exam Narrative GENERAL: Overweight, well-developed, alert male. In no acute distress. SKIN: Warm and dry. HEAD: Atraumatic. Normocephalic. EYES: Pupils equal and round. No scleral icterus. No injection or drainage. ENT: No nasal bleeding or discharge. Mucous membranes pink and moist. NECK: Trachea midline. No JVD. CARDIOVASCULAR: Regular rate and rhythm. RESPIRATORY: No accessory muscle use. Clear to auscultation. Breath sounds equal bilaterally. GASTROINTESTINAL: Abdomen soft, non-tender, nondistended. Hepatic and splenic margins not palpable. MUSCULOSKELETAL: Extremities without clubbing, cyanosis, or edema. No obvious deformities. Tenderness to palpation to left lower back over SI joint and lateral aspect of left hip. No ecchymosis noted. No weakness in extremities. No spinal tenderness or step-off noted. NEUROLOGICAL: Awake and alert. No obvious cranial nerve deficits. Motor grossly within normal limits. Five out of 5 muscle strength in the arms and legs. Normal speech. PSYCHIATRIC: Appropriate mood and affect; insight and judgment normal. Data Data Last Documented VS Vital Signs Date Time Temp Pulse Resp B/P (MAP) Pulse Ox O2 Delivery O2 Flow Rate FiO2 02/14/18 09:46 98.0 96 18 149/89 (109) 97 Orders Orders Hip, Ap Only W Ap Pelvis (02/14/18 ) MDM Medical Decision Making Medical Screen Exam Complete: Yes Emergency Medical Condition: Yes Interpretation(s) Last Impressions Hip and Pelvis X-Ray 02/14/18 0000 Signed Impressions: CONCLUSION: Negative for fracture or dislocation. Followup in 7-10 days is suggested if sym ptoms persist. Vital Signs Date Time Temp Pulse Resp B/P (MAP) Pulse Ox O2 Delivery O2 Flow Rate FiO2 02/14/18 09:46 98.0 96 18 149/89 (109) 97 Differential Diagnosis Muscle strain versus muscle spasm versus radiculopathy versus less likely fracture Narrative Course Patient is a well-appearing 42-year-old male presenting for evaluation of left lower back and hip pain that started 6 days ago after mechanical fall. Patient has no focal deficits on exam. Patient was advised that findings are most consistent with musculoskeletal strain. Patient feels something else is wrong, x-ray is ordered and pending. X-rays negative for acute fracture. Patient was encouraged to return if symptoms persist beyond 7-10 days per radiology report. Patient will be discharged home, he is encouraged to alternate heat and ice the affected area, continue range of motion exercises, avoid exacerbating activities, avoid bed rest. He will be placed on ketorolac and Flexeril. He is encouraged to follow-up with his primary doctor at the [facility]. Patient verbalized understanding of instructions. Patient stable for discharge. Diagnosis Primary Impression: Hip pain Qualified Codes: M25.552 - Pain in left hip Referrals: [facility] Primary Care Physician Patient Instructions: General Instructions, Hip Contusion (ED) Additional Instructions: Take medications as directed Apply warm heat to affected area, continue range of motion exercises, avoid exacerbating activities, avoid bed rest Follow-up with primary doctor at the [facility]. Return to emergency department for any new worsening symptoms Med/Other Pt SpecificInfo: Prescription(s) given Scripts Cyclobenzaprine (Flexeril) 10 Mg Tab 10 MG PO TID Y for MUSCLE SPASM, #30 TAB 0 Refills Prov: Alexa Wasserman 02/14/18 Ketorolac (Ketorolac) 10 Mg Tab 10 MG PO Q6HR Y for PAIN for 10 Days, TAB 0 Refills Prov: Alexa Wasserman 02/14/18 Disposition: 01 DISCHARGE HOME Condition: Stable Alexa Wasserman Feb 14, 2018 10:10
--- NOTE | 2018-02-14 10:34 | RADRPT ---
EXAM DATE: 02/14/2018 10:31 AM EDT AGE/SEX: 42 years / Male INDICATIONS: Left hip pain after fall. CLINICAL DATA: This is the patient's initial encounter. Patient reports that signs and symptoms have been present for 1 week and indicates a pain score of 10/10. MEDICAL/SURGICAL HISTORY: None. None. COMPARISON: No prior exams available for comparison. FINDINGS: Bony structures are intact and in normal alignment. Joints are intact without dislocation or signifi cant arthropathy. Osseous density is normal. Soft tissues are unremarkable. No radiopaque foreign bodies seen. CONCLUSION: Negative for fracture or dislocation. Followup in 7-10 days is suggested if symptoms persist. Electronically signed by: Luiz Temple MD 02/14/2018 10:33 AM EDT
[2018-02-14] MEDS ORDERED: CYCL10TA PO (10:56)
[2018-02-14] MEDS ORDERED: KETO10 PO (10:56)
[2018-02-14 11:20] VITALS: BP 142/86
== END 2018-02-14 11:21 | disposition home or self-care (01) ==
LOC: NEPD 09:43
DX: M25.552 Pain in left hip (principal)
CPT/HCPCS: 73501; 99283